=== PATIENT | female | born 1955 | race Caucasian/White ===

== ENCOUNTER 2023-12-03 17:49 | Emergency (ER) | payer MEDICARE, SELFPAY ==
[2023-12-03 17:53] VITALS: BP 114/79
[2023-12-03 17:58] VITALS: BMI 29.5
[2023-12-03 18:02] VITALS: BP 113/79
[2023-12-03 18:06] LABS: Glucose - Point of Care 104 mg/dl (70-99)
[2023-12-03 18:21] LABS: % Basophils 0.5 % (0-2); % Eosinophils 2.6 % (0-6); % Immature Granulocytes 0.2 % (0-0.5); % Lymphocytes 16.6 % (20.5-51.1); % Monocytes 9.8 % (1.7-9.3); % Neutrophils 70.3 % (42.2-75.2); Absolute Eosinophils 0.1 10^3/uL (0-0.7); Absolute Lymphocytes 0.7 10^3/uL (1.2-3.4); Absolute Monocytes 0.4 10^3/uL (0.1-0.6); Hematocrit 39.1 % (37.0-47.0); Hemoglobin 13.8 g/dL (12.0-16.0); Mean Corp Hgb Conc. 35.3 g/dL (33.0-37.0); Mean Corpuscular Hgb 33.4 pg (27.0-31.0); Mean Corpuscular Volume 94.7 fL (81.0-99.0); Nucleated Red Blood Cells % 0 %; Platelet Count 189 10^3/uL (130-400); Red Blood Cell Count 4.13 10^6/uL (4.20-5.40); Red Cell Dist. Width 12.2 % (11.5-14.5); White Blood Cell Count 4.3 10^3/uL (4.8-10.8)
[2023-12-03 18:43] LABS: ALT (SGPT) 27 U/L (0-35); AST (SGOT) 36 U/L (14-36); Albumin 4.7 g/dl (3.5-5.0); Alkaline Phosphatase 65 U/L (38-126); Blood Urea Nitrogen 33 mg/dl (7-17); Calcium 9.5 mg/dl (8.4-10.2); Carbon Dioxide 28 mmol/L (22-30); Chloride 101 mmol/L (98-107); Estimated Creatinine Clearance 69 ml/min; Glucose 107 mg/dl (70-99); Potassium 4.9 mmol/L (3.5-5.1); Sodium 133 mmol/L (135-145); Total Bilirubin 0.5 mg/dl (0.2-1.3); Total Protein 6.9 g/dl (6.3-8.2); eGFR > 60.00
--- NOTE | 2023-12-03 19:09 | ED.GENMED ---
History of Present Illness
General
Chief Complaint: Change in Mental Status
Source: patient and spouse
Exam Limitations: none
Time Seen by Provider: 12/03/23 18:26
Nursing documentation reviewed up to this point in time: agreed with
History of Present Illness
History of Present Illness:
Patient with history of seizure disorder on Vimpat, presents to ED for evaluation after she was found sitting in the parking lot, wearing her pajamas. Patient was noted to have urine incontinence. Upon arrival, patient is alert, awake, but appears
to be confused. Patient otherwise has no complaints. Denies headache. Denies dizziness. Denies loss of sensation or weakness. Patient is unsure if she had another seizure episode today.
Review of Systems
Review of Systems
Allergies reviewed?: Yes
All Other Systems: ROS reviewed and negative except as documented in HPI and ROS
Constitutional: Reports no symptoms
Respiratory: Reports no symptoms
Cardiac: Reports no symptoms
ABD/GI: Reports no symptoms
: Reports no symptoms
Musculoskeletal: Reports no symptoms
Skin: Reports no symptoms
Neurological: Reports no symptoms
Phy Exam
Physical Exam
Physical Exam:
Physical Exam
General: no apparent distress, not acutely ill. afebrile.
Head: nc/at. eomi
Neck: supple. no meningeal signs.
Heart: s1/s2 regular rate and rhythm, no murmur. equal radial pulses.
Lungs: no acute respiratory distress. clear bilaterally
Abdomen: normal bowel sounds. not tender.
Neuro: alert and oriented. no focal neurological deficits
Skin: no rash
Psychiatric: well kept. interactive and cooperative
Extremities: no edema. no calf tenderness.
Course
Orders/Labs/Results
Orders:
Orders
12/03/23 18:02
Electrocardiogram (*1) Urgent
Reason for Study: Fatigue / Weakness
EKG- Treatment ONCE
12/03/23 18:15
CMP [Comprehensive Metabolic Panel] Urgent
Complete Blood Count/With Diff Urgent
Abnormal Lab Results
12/03/23 12/03/23
18:05 18:15
WBC 4.3 L 10^3/uL
(4.8-10.8)
RBC 4.13 L 10^6/uL
(4.20-5.40)
MCH 33.4 H pg
(27.0-31.0)
Absolute Lymphs (auto) 0.7 L 10^3/uL
(1.2-3.4)
Lymphocytes % 16.6 L %
(20.5-51.1)
Monocytes % 9.8 H %
(1.7-9.3)
Sodium 133 L mmol/L
(135-145)
BUN 33 H mg/dl
(7-17)
Glucose 107 H mg/dl
(70-99)
POC Glucose 104 H mg/dl
(70-99)
12/03/23 18:15
12/03/23 18:15
Vital Signs
Initial and Last Documented VS:
Initial Vital Signs
Temp Pulse Resp BP Pulse Ox
98.9 F 81 19 114/79 94
12/03/23 17:53 12/03/23 17:53 12/03/23 17:53 12/03/23 17:53 12/03/23 17:53
Last Documented Vital Signs
Temp Pulse Resp BP Pulse Ox
98.9 F 73 18 113/79 94
12/03/23 17:53 12/03/23 18:45 12/03/23 18:45 12/03/23 18:02 12/03/23 18:45
MDM/Problems Addressed
MDM/Problems Addressed:
Shortly after patient's arrival to ED, patient's spouse arrived. informs me that patient is currently at baseline health and mental status, and she has had number of similar episodes in the past. He does not feel that she needs any further
workup at this time, as she is being closely followed by her neurologist. feels comfortable taking the patient home at this time. They will contact her neurologist for consultation as an outpatient.
*Critical Care Note
Total Time (30-74mins, 75-104mins- exclusive of procedures): Not Applicable
ED Attending Note
-
Portions of this chart may have been created with voice recognition software.� Occasional wrong word or��sound alike� substitutions may have occurred due to the inherent limitations of voice recognition software.
Discharge Plan
Departure
Patient Disposition: Home (Routine Discharge)
Date of Disposition: 12/03/23
Time of Disposition: 19:09
Patient with high blood pressure during this ER visit?: Yes
Discharge Problem:
Seizure
Instructions: Seizures, Adult ED
Activity Restrictions/Additional Instructions:
As discussed, please follow-up with your primary care physician and/or neurologist with any further concerns.
Interventions
Interventions:
*Risk Screen - Suicide Last Done: 12/03/23 18:08
*General Assessment Last Done: 12/03/23 18:08
*Neglect/Abuse Screening Last Done: 12/03/23 18:08
ED- Fall Risk Assessment Last Done: 12/03/23 19:26
*ED COVID-19 Vaccine History Last Done: 12/03/23 18:08
*Nursing Disposition Last Done: 12/03/23 19:26
ED- Pulmonary Assessment Last Done: 12/03/23 18:34
ED- Neurological Assessment Last Done: 12/03/23 18:34
ED- Cardiac Assessment Last Done: 12/03/23 18:34
ED Swallowing Screen Last Done: 12/03/23 19:05
Discharge Date and Time
Discharge Date/Time: 12/03/23 19:31
Print Language: ICELANDIC
== END 2023-12-03 19:31 | disposition home or self-care (01) ==
LOC: EMR 17:49
PROVIDERS: EMERGENCY PHYSICIAN Emergency Medicine; FAMILY PHYSICIAN Internal Medicine
DX: R41.0 Disorientation, unspecified (principal); G40.909 Epilepsy, unspecified, not intractable, without status epilepticus; R32 Unspecified urinary incontinence; Y92.481 Parking lot as the place of occurrence of the external cause; Z96.653 Presence of artificial knee joint, bilateral
CPT/HCPCS: 99283; 80053; 82962; 85025; 93005

== ENCOUNTER 2024-04-15 21:32 | Inpatient (IN) | payer MEDICARE, SELFPAY ==
[2024-04-15 17:44] VITALS: BP 143/91
[2024-04-15 18:17] VITALS: BP 126/83
[2024-04-15 18:23] LABS: % Basophils 0.7 % (0-2); % Eosinophils 1.7 % (0-6); % Immature Granulocytes 0.2 % (0-0.5); % Lymphocytes 15.5 % (20.5-51.1); % Monocytes 10.9 % (1.7-9.3); Absolute Eosinophils 0.1 10^3/uL (0-0.7); Absolute Lymphocytes 0.7 10^3/uL (1.2-3.4); Absolute Monocytes 0.5 10^3/uL (0.1-0.6); Absolute Neutrophils 3.3 10^3/uL (1.4-6.5); Hematocrit 39.2 % (37.0-47.0); Hemoglobin 13.2 g/dL (12.0-16.0); Mean Corp Hgb Conc. 33.7 g/dL (33.0-37.0); Mean Corpuscular Hgb 33.3 pg (27.0-31.0); Mean Platelet Volume 9.6 fL (7.4-10.4); Nucleated Red Blood Cells % 0 %; Platelet Count 214 10^3/uL (130-400); Red Blood Cell Count 3.96 10^6/uL (4.20-5.40); Red Cell Dist. Width 12.5 % (11.5-14.5); White Blood Cell Count 4.6 10^3/uL (4.8-10.8)
[2024-04-15 18:33] LABS: ALT (SGPT) 34 U/L (0-35); AST (SGOT) 49 U/L (14-36); Albumin 4.6 g/dl (3.5-5.0); Alkaline Phosphatase 46 U/L (38-126); Blood Urea Nitrogen 26 mg/dl (7-17); Calcium 9.3 mg/dl (8.4-10.2); Carbon Dioxide 31 mmol/L (22-30); Chloride 99 mmol/L (98-107); Glucose 101 mg/dl (70-99); Potassium 4.7 mmol/L (3.5-5.1); Sodium 136 mmol/L (135-145); Total Bilirubin 0.4 mg/dl (0.2-1.3); eGFR > 60.00
[2024-04-15 18:43] LABS: Troponin I < 0.012 ng/ml
[2024-04-15] MEDS: ADACEL 0.5 ML IM (18:49)
[2024-04-15 19:00] VITALS: BP 119/84
--- NOTE | 2024-04-15 20:45 | ED.GENMED ---
History of Present Illness
General
Chief Complaint: Head Injury
Source: patient, records and spouse
Exam Limitations: none
Time Seen by Provider: 04/15/24 18:28
Nursing documentation reviewed up to this point in time: agreed with
History of Present Illness
History of Present Illness:
Patient is 68-year-old female presents to the emergency department after falling and striking her head on the right side today. Patient had taken a hot shower and sat on the toilet and was bending over when she seemingly passed out striking her
head on the floor. According the patient's she did not have a seizure. Patient has a neuro implant for seizures. It was placed after she became menopausal and is starting to have seizures once a month. The seizure disorder was from a
childhood trauma. Patient denies any chest pain, shortness of breath or palpitations. Patient denies any recent illnesses, fever, chills, nasal congestion, sore throat or cough. Patient denies any GI or symptoms. Patient denies any neck or
back pain. Patient denies any extremity pain. Patient did suffer a laceration to her right forehead. Patient denies any visual or speech difficulties at this time.
Past History
Past History
ED Past Medical History: Seizures
Social History
Tobacco: Non-smoker
Personal:
Review of Systems
Review of Systems
All Other Systems: Not applicable
Phy Exam
Physical Exam
Physical Exam:
Physical Exam
General: No apparent distress, alert and appropriate and usual mental status, well nourished, well hydrated
HENT: head with 6 cm linear/vertical laceration of the right lateral forehead, supple with no tracheal deviation or contusion
Eyes: Clear sclera, conjuctiva without injection, extraocular muscles intact
Heart: Regular rhythm and rate. No S3, S4. No murmur. No NVD, bruit
Lungs: No respiratory distress, no stridor, lung sounds clear and equal bilaterally, chest wall symmetrical and nontender
Abdomen: Soft, nontender, BS good
Neuro: Alert and oriented x 3, CN II - XII intact, no motor focality, no cerebellar dysfunction
Skin: Wound is stated above
Psychiatric: well kept. interactive and cooperative
Extremities: No edema, cyanosis, tenderness, Good and equal peripheral pulses.
Musculoskeletal: No cervical, thoracic or lumbar spine tenderness
Course
Orders/Labs/Results
Orders:
Orders
04/15/24 17:49
Electrocardiogram (*1) Urgent
Reason for Study: Syncope
CT Cervical Spine W/o Iv Contr Urgent
Comment:
Reason For Exam: syncope
CT Head W/o Iv Contrast Urgent
Comment:
Reason For Exam: syncope
04/15/24 17:50
EKG- Treatment ONCE
04/15/24 18:07
Complete Blood Count/With Diff Urgent
Comprehensive Metabolic Panel Urgent
Troponin I Urgent
04/15/24 18:35
Tetanus/Diphth/Acelpertussis [Adacel] 0.5 ml IM .ONCE ONE
04/15/24 20:54
Clonazepam [Klonopin] 1 mg PO NOW STA
Lacosamide [Vimpat] 200 mg PO NOW STA
04/15/24 21:19
Admit/Transfer Patient As Directed
Co-Sign Provider:
Level of Care: Inpatient admission
Assign to:: ICU
Physician / Group: hospitalist
Diagnosis: subdural hematoma
Reason for Hospitalization: subdural hematoma
Expected length of stay greater than two midnights?: Yes
ELOS- Estimated Length of Stay in days: 2
I certify the patient meets the requirements for IP care: Yes
PRN Pain Medication Management As Directed
May give lesser potent ordered pain med per pt: Yes
preference::
Protocol:: Medication orders for pain may be administered in a
manner that supports deferring to patient preference
when the pt is:
- Requesting an ordered lesser potent pain medication.
Least to most potent pain medications are defined
as: acetaminophen < NSAID < tramadol < opioids
(morphine, oxycodone, hydromorphone).
- Requesting a lesser dose of the same medication IF
ORDERED.
- Requesting a less intrusive route of administration
if both routes are prescribed by the provider (PO <
IV).
04/15/24 21:20
Code Status As Directed
Resuscitation Status: Full Code
04/15/24 21:57
Acetaminophen [Tylenol/Feverall] 650 mg RECTAL Q4HPRN PRN
Acetaminophen [Tylenol] 650 mg PO Q4HPRN PRN
Labetalol HCl [Trandate] 5 mg IV Q6HPRN PRN
04/15/24 21:57
Neurosurgery Consult Urgent
Consulting Provider: Nicole Delgado
Was physician already notified: Yes
Reason for Consult: 2 cm subdural hematoma
Activity As Directed
Activity Level: With Assistance
Elevate HOB [Head of Bed-Restrictions] As Directed
Elevation Level: 30 degress
Head of Bed-Restrictions As Directed
Elevation Level: 30 degress
NIH Stroke Scale As Directed
Directions: Per protocol
Comment: every shift and with any change in condition or mental status
Neurological Checks As Directed
Frequency: q1h
Additional Instructions:: q1h and with any change in condition or mental status
Patient Education As Directed
Type: Stroke education packet
Comment: provide to patient and family
Pneumatic Compression Sleeves As Directed
Type: Knee high
Vital Signs As Directed
Frequency: Per unit guidelines
Additional Instructions:: goal SBP 120-140 mmHg
DX Deep Vein Thrombosis Video Routine
04/15/24 22:00
Flush (0.9% Sodium Chloride) [Flush (Nss)] See Dose Instructions IV PER PROTOCOL
04/16/24 06:00
Basic Metabolic Panel IN AM
Complete Blood Count/No Diff IN AM
Magnesium IN AM
PTT IN AM
Prothrombin Time IN AM
Abnormal Lab Results
04/15/24
18:07
WBC 4.6 L 10^3/uL
(4.8-10.8)
RBC 3.96 L 10^6/uL
(4.20-5.40)
MCH 33.3 H pg
(27.0-31.0)
Absolute Lymphs (auto) 0.7 L 10^3/uL
(1.2-3.4)
Lymphocytes % 15.5 L %
(20.5-51.1)
Monocytes % 10.9 H %
(1.7-9.3)
Carbon Dioxide 31 H mmol/L
(22-30)
BUN 26 H mg/dl
(7-17)
Glucose 101 H mg/dl
(70-99)
AST 49 H U/L
(14-36)
04/15/24 18:07
04/15/24 18:07
Vital Signs
Initial and Last Documented VS:
Initial Vital Signs
Temp Pulse Resp BP Pulse Ox
98.3 F 75 20 143/91 98
04/15/24 17:44 04/15/24 17:44 04/15/24 17:44 04/15/24 17:44 04/15/24 17:44
Last Documented Vital Signs
Temp Pulse Resp BP Pulse Ox
98.5 F 65 17 115/80 98
04/15/24 22:00 04/15/24 22:30 04/15/24 22:30 04/15/24 22:13 04/15/24 22:30
Procedures
Laceration Closure
Right Lateral Forehead:
Status of Wound: clean
Size of Wound in cm: 6
Description of Wound Edges: sharp
Preparation: cleaned with Betadine
Anesthesia: 1% Lidocaine with epi and added Na Bicarb to local
Revision/Debridement: minor revision
Wound exploration: explored to base- no FB
Type of Closure: layered closure, interrupted sutures (10) and mattress sutures (5)
Skin Closure Material: 6-0 prolene (15) and 5-0 chromic gut (7)
Number of sutures: 22
*Radiology
Radiology exam reviewed: radiology read reviewed (Small right frontal subdural)
*Pulse Oximetry
Patient hypoxic: no
*EKG
Interpreted by ED Provider?: Yes
EKG Intrepretation Date: 04/15/24
EKG Intrepretation Time: 20:53
Interpretation: abnormal
Comparison EKG: no changes
Heart Rate: 72
Rate: normal
Rhythm: sinus
Jay: normal axis
Interval: normal interval
QRS Pattern: normal QRS and low voltage
Ischemia: no ischemia
*Electrician Front Interpretation
Rate: normal
Interpretation: normal
Heart Rate: 72
Rhythm: sinus
*Critical Care Note
Total Time (30-74mins, 75-104mins- exclusive of procedures): 40 minutes
Update Note
Update Note:
Spoke with neurosurgery at [facility]. [place] the patient would be okay here for observation and a repeat scan. Scan would be at 12 midnight and observation for 12 to 24 hours. Patient is not on any blood thinners or aspirin.
ED Attending Note
-
Portions of this chart may have been created with voice recognition software.� Occasional wrong word or��sound alike� substitutions may have occurred due to the inherent limitations of voice recognition software.
Discharge Plan
Departure
Patient Disposition: Admit
Date of Disposition: 04/15/24
Time of Disposition: 21:05
Admit to: ICU
Admit to doctor: Hospitalist
Presentation/result/management discussed w/ accepting MD/DO: Neurosurgery
Patient with high blood pressure during this ER visit?: No
Condition: Serious
Covid-19: Not Applicable
Discharge Problem:
Acute subdural hematoma, Syncope and collapse, Complex laceration of forehead
Interventions
Interventions:
*Risk Screen - Suicide Last Done: 04/15/24 22:32
*General Assessment Last Done: 04/15/24 17:44
*Neglect/Abuse Screening Last Done: 04/15/24 18:15
*ED COVID-19 Vaccine History Last Done: 04/15/24 22:32
*Nursing Disposition Last Done: 04/15/24 22:33
ED- Neurological Assessment Last Done: 04/15/24 18:16
ED-Skin Assessment Last Done: 04/15/24 18:16
Discharge Date and Time
Discharge Date/Time: 04/15/24 22:33
[2024-04-15 21:00] VITALS: BP 126/93
[2024-04-15] MEDS: KLONOPIN 1 MG PO (21:00)
[2024-04-15] MEDS: VIMPAT 200 MG PO (21:00)
--- NOTE | 2024-04-15 21:33 | HPS.HSE ---
Family Physician
-
Family Physician: Doe Escobedo
Chief Complaint
-
Fall and right sided fore-head laceration
History of Present Illness
68 y.o female with h/o epilepsy since childhood on AED who had a mechanical fall today complicated by laceration over the forehead and acute subdural hematoma.
Patient reported been in usual state of health. She had went to use the commode and upon standing she felt lightheaded and fell to the floor hitting her head. She had no loss of consciousness. She had no seizure-like activity. She had been
compliant with her AEDs. When spouse or head before he quickly came to her assistance. He was able to get her up and called EMS to bring her to the ED. Patient denies any arm or hip or leg pain. Patient is not on any blood thinners or aspirin.
Initial vital signs were stable with a blood pressure of 196/90, pulse of 65 and temp of 90.3. She is satting 96% on room air. CBC was unremarkable. Electrolytes BUN/creatinine were also within normal limits. ECG showed a normal sinus rhythm at
rate of [address] or T wave changes. Troponin was negative. CT of the head showed a 2 cm area of subacute subdural hemorrhage in the anterior aspect of the right anterior cranial fossa.
Patient reviewed by neurosurgery. No transfer. [place] that a repeat CT around midnight would be adequate with 12 to 24 hours of observation in the ICU as long as the subdural had not increased in size.
Medical History
Past Medical History
Past Medical History: Reports Seizures
Past Surgical History: Reports Orthopedic (Left knee arthroplasty)
Social History
Tobacco: Non-smoker
Alcohol: None
Drug: None
Personal:
Living: With Family
Family History
Family History: Not pertinent
Allergies / Home Medications
Allergies reflects when Allergies were last updated in [facility].
Home Medications with original date entered in [facility]
Allergy/Medication List:
Allergies
Allergy/AdvReac Type Severity Reaction Status Date / Time
No Known Allergies Allergy Verified 04/15/24 17:44
Review of Systems
-
History Source: Patient
Constitutional: Reports No Symptoms
EENT: Reports No Symptoms
Respiratory: Reports No Symptoms
Cardiac: Reports No Symptoms
Abdomen/GI: Reports No Symptoms
: Reports No Symptoms
Musculoskeletal: Reports No Symptoms
Skin: Reports No Symptoms
Neurological: Reports Headache
Endocrine: Reports No Symptoms
Hematologic/Lymphatic: Reports No Symptoms
Psych: Reports No Symptoms
Physical Exam
Vital Signs
Vital Signs
Temp Pulse Resp BP Pulse Ox
98.3 F 65 15 126/93 96
04/15/24 17:44 04/15/24 21:00 04/15/24 20:45 04/15/24 21:00 04/15/24 21:00
Physical Exam
General: Well Developed, Well Nourished, No Apparent Distress and Comfortable
HEENT: NormoCephalic, Anicteric, Moist mucous membranes and Other (about a 7 cm curvilinear laceration above the right eye on the right forehead, s/p sutures that are c/d/i)
Respiratory: Clear
Cardiac: S1/S2 and Regular Rhythm
Breast: Deferred by me
GI: Soft, Non Tender, Non Distended and Normal Bowel Sounds
Rectal: Deferred by Provider
Genito-urinary: Deferred by me
Musculoskeletal: No Clubbing, No Cyanosis and No Edema
Skin: Warm
Neuro: AO x 3, No Motor Deficits, Cranial Nerves Intact and No Sensory Deficits
Hematologic/Lymphatic: No Lymphadenopathy
Psych: Calm
Laboratory Results
-
04/15/24 18:07
04/15/24 18:07
Laboratory Results
Total Bilirubin 0.4 mg/dl (0.2-1.3) 04/15/24 18:07
AST 49 U/L (14-36) H 04/15/24 18:07
ALT 34 U/L (0-35) 04/15/24 18:07
Alkaline Phosphatase 46 U/L (38-126) 04/15/24 18:07
Troponin I < 0.012 ng/ml 04/15/24 18:07
Data Reviewed
-
CT Scan: Report Reviewed by me
Medical Tests (Nuc Med, Echo, EKG etc): Image Personally Visualized and interpreted
Lab Data: Labs Reviewed by me
Old Records: Reviewed
Impression/Plan
-
IMPRESSION:
Patient with episode of lightheadedness after using commode and a fall. No seizures. She did suffer a significant laceration over the right forehead status post sutures and found to have 2 cm right-sided subdural hematoma. Not on any blood
thinners or aspirin. Neurologically intact without any focal deficits and otherwise well-appearing.
PLAN:
Subdural Hematoma -
- admit to icu
- q 1 h neurochecks
- keep SBP < 140, intermittent labetolol and if needed nicardipine
- hob > 30 deg
- repeat CT 6 hours (midnight)
- SCDs
AED
- continue vimpat 200 bid
- clonazepam 1mg hs
Code Status - Full code
[2024-04-15 22:13] VITALS: BP 115/80
--- NOTE | 2024-04-15 22:44 | PTCARENOTE ---
Pt received from ED via stretcher. Admitted to ICU--[id number]. Pt Ox3. NIH = 0. LE, strong. SR-sinus gladis, 50s-60s. RA, diminished at the bases. BS active, soft BM. Voided x1, yellow urine. R side of head with sutures, dressing intact. Safe environment
maintained, all giordano within reach.
[2024-04-15 23:00] VITALS: BP 109/72
[2024-04-16] VITALS (22 sets, daily range): BP systolic 83–121; BP diastolic 57–90; BMI 30.4
--- NOTE | 2024-04-16 01:00 | PTCARENOTE ---
Pt with NPO order, sips of clears and meds ok. Pt spouse brought in sandwich when RN not in room, pt aware of NPO order--ate sandwich. Reminded pt of NPO order.
[2024-04-16 04:05] LABS: Hematocrit 36.1 % (37.0-47.0); Hemoglobin 12.1 g/dL (12.0-16.0); Mean Corp Hgb Conc. 33.5 g/dL (33.0-37.0); Mean Corpuscular Hgb 33.1 pg (27.0-31.0); Mean Corpuscular Volume 98.6 fL (81.0-99.0); Mean Platelet Volume 9.8 fL (7.4-10.4); Platelet Count 184 10^3/uL (130-400); Red Blood Cell Count 3.66 10^6/uL (4.20-5.40); Red Cell Dist. Width 12.2 % (11.5-14.5); White Blood Cell Count 4.4 10^3/uL (4.8-10.8)
[2024-04-16 04:13] LABS: INR 0.95
[2024-04-16 04:14] LABS: APTT 25.3 Sec (23.4-35.0)
--- NOTE | 2024-04-16 04:21 | PTCARENOTE ---
Pt assessment unchanged. Safe environment maintained. Call giordano within reach.
[2024-04-16 04:29] LABS: Blood Urea Nitrogen 27 mg/dl (7-17); Calcium 8.2 mg/dl (8.4-10.2); Carbon Dioxide 26 mmol/L (22-30); Chloride 106 mmol/L (98-107); Glucose 84 mg/dl (70-99); Magnesium 1.8 mg/dl (1.6-2.3); Potassium 3.6 mmol/L (3.5-5.1); Sodium 139 mmol/L (135-145); eGFR > 60.00
--- NOTE | 2024-04-16 07:40 | CON.INTV ---
Consultation
Consultation Request
Date/Time Consultation Requested: 04/16/2024-7 AM
Date/Time Consultation Performed: 04/16/2024-7:30 AM
Requesting Provider: Hospitalist
Performing Provider: Dr. Haji
Reason for Consultation: Subdural hematoma/critical care management
Medical History
-
Chief Complaint: Fall/subdural hematoma
History of Present Illness:
68-year-old female with a history of epilepsy since childhood who had a mechanical fall complicated by laceration over forehead and acute subdural hematoma-shank rander consulted for subdural hematoma/critical care management 04/16/2024. Patient
denies any headache, focal weakness, visual problems, shortness of breath, chest pain, chest tightness, productive cough, chest congestion, abdominal pain, nausea, weakness or lower extremity swelling.
Past Medical History
Past Medical History: None (Epilepsy since childhood. Left knee arthroplasty)
Social History
Tobacco: Non-smoker
Alcohol: None
Drug: None
Personal:
Living: With Family
Occupational Exposures: No known asbestos exposure
Environmental Exposures: no known tuberculosis exposure
Family History
Family History: Reviewed & Not Pertinent
Allergies / Home Medications
Allergies
Allergy/AdvReac Type Severity Reaction Status Date / Time
No Known Allergies Allergy Verified 04/15/24 17:44
Home Medications
�Medication �Instructions �Recorded �Confirmed �Last Taken �Type
anastrozole 1 mg tablet 1 mg PO DAILY 04/15/24 04/15/24 Unknown History
clonazepam 0.25 mg disintegrating 0.25 mg PO HS 04/15/24 Unknown History
tablet
clonazepam 1 mg tablet 1 mg PO HS 04/15/24 Unknown History
escitalopram oxalate 10 mg tablet 10 mg PO DAILY 04/15/24 Unknown History
lacosamide 200 mg tablet 200 mg PO Q12 04/15/24 Unknown History
Review of Systems
-
Unable to Obtain full review of systems at this time due to: Other (Per HPI)
Vitals / Labs / Diagnostic Testing
Vital Signs
Temp Pulse Resp BP Pulse Ox
96.8 F L 70 15 121/78 92
04/16/24 03:28 04/16/24 07:00 04/16/24 07:00 04/16/24 07:00 04/16/24 06:00
Lab Data
04/16/24 03:52
04/16/24 03:52
Laboratory Results
04/15/24 04/16/24
21:43 03:52
PT Cancelled 13.0
INR Cancelled 0.95
APTT Cancelled 25.3
Diagnostic Testing:
Physical Exam
-
Exam:
Well-nourished and well-developed in no apparent distress
HEENT-atraumatic, normocephalic, laceration right forehead
Neck-supple, no JVD, no bruit
Heart-regular rate and rhythm-no murmurs, rubs or gallops
Chest-clear to auscultation, no wheezes, crackles
Back-no tenderness
Abdomen-soft, nontender, nondistended, no hepatosplenomegaly
Extremities-no cyanosis, clubbing, edema and good peripheral pulses
Integument-intact, no rashes, lesions or ecchymosis
Neurology-alert and oriented, nonfocal motor and sensory exam
Assessment
-
68-year-old female with a history of epilepsy since childhood who had a mechanical fall complicated by laceration over forehead and acute subdural hematoma-shank rander consulted for subdural hematoma/critical care management 04/16/2024.
Mechanical fall with forehead laceration
Subdural hematoma
Leukopenia
Conditions present prior to admission:
Epilepsy since childhood
Plan
Patient will be monitored closely in intensive care unit
Supplemental oxygen as needed
Aspiration precautions
Neurochecks per protocol
Follow-up CT head to ensure subdural hematoma is not enlarging-appears stable on second CT
Neurosurgical evaluation ongoing
Antiepileptics continue
DVT prophylaxis-mechanical
Nutrition
Early mobilization
If no expansion of the subdural hematoma then the patient could be transferred out of ICU-call pulmonary if respiratory issues arise
Critical care statement: A total of 55 minutes of critical care time was provided for this patient today. This includes management of unstable vital signs, evaluation of the patient at bedside, reviewing the patient's pertinent medical records
including radiographs, microbiology, laboratory evaluations, and discussion with primary team, consultants, pharmacy, nutrition, physical therapy, case management, charge nurse, critical care nursing, and respiratory therapy.
Diagnostic data:
Chest x-ray 04/15/2024-no acute cardiopulmonary process
CT cervical spine 04/15/2024-no acute osseous abnormalities, degenerative disc disease C3-4 through C6-7
CT head 04/15/24-2 cm area of subacute subdural hemorrhage anterior aspect of the right anterior cranial fossa, moderate cortical atrophy
CT head 04/16/24-2 cm area of subacute right frontal subdural hematoma essentially stable
Data Reviewed
-
EKG: Report reviewed by me
Radiology: Image personally visualized and interpreted and Report reviewed by me
CT Scan: Image personally visualized and interpreted and Report reviewed by me
Medical Tests (Nuc Med, Echo etc): Report reviewed by me
Labs: Labs reviewed by me
Old Records: Reviewed
Critical Care Time (in minutes): 55
--- NOTE | 2024-04-16 07:49 | PTCARENOTE ---
Rec'd care of patient at 0700. Patient alert and oriented. NIH completed with previous RN- 0. Flakita4. Smile symmetrical, tongue midline. Pupils equal and reactive. Patient denies visual changes and dizziness. NSR on tele. Lung sounds cta. +BS. Last
BM overnight. Voiding without difficulty. Right forehead laceration covered with dressing- c/d/i. Peripheral INTs flushed and capped. Bed alarm on and safe environment maintained.
[2024-04-16] MEDS: VIMPAT 200 MG PO ×2 (08:00→20:33)
--- NOTE | 2024-04-16 09:27 | W.PN.HOSP.TC ---
Today's Communication/Plan
-
see plan
Assessment / Plan
Assessment / Plan
Gen: NAD, AAOx3.
Eyes: EOMI, PERRLA, no scleral icterus.
Neck: supple.
CV: RRR, +S1/S2, no m/r/g.
Resp: CTAB, no rales, wheezes, or rhonchi.
Abd: +BS, soft, NT, ND
Skin: No rashes.
Neuro: CN 2-12 intact, non-focal.
Psych: Normal mood and affect.
CT brain: Unenhanced CT imaging of the head is again markedly limited as a result of marked beam hardening artifact from bilateral neurostimulator wires. Approximate 2 cm area of subacute right frontal subdural hematoma is essentially stable. The
remainder of the study is grossly stable.
Subdural Hematoma:
-due to fall without report of seizure activity or LOC
-cont Q1H neurochecks
-repeat CT brain stable
-c/s neurosurgery
Seizure d/o: continue vimpat/clonazepam
Obesity due to excess calories
FULL/SCDs
Anticipated Discharge: Within 24 hours
Subjective/Interval History
-
Date of Service: April 16, 2024
Denies headache. No new complaints.
Objective Data
-
Labs:
Laboratory Results
04/15/24 04/16/24
21:43 03:52
WBC 4.4 L
Hgb 12.1
Hct 36.1 L
Plt Count 184
PT Cancelled 13.0
INR Cancelled 0.95
APTT Cancelled 25.3
Sodium 139
Potassium 3.6
Chloride 106
Carbon Dioxide 26
BUN 27 H
Creatinine 0.6
Glucose 84
Calcium 8.2 L
Vital Signs:
Vital Signs
Temp Pulse Resp BP Pulse Ox
97.5 F 65 18 104/75 94
04/16/24 07:30 04/16/24 09:00 04/16/24 09:00 04/16/24 09:00 04/16/24 09:00
--- NOTE | 2024-04-16 12:18 | PTCARENOTE ---
No changes in assessment. Neuro checks maintained Q1 hr. Vitals stable.
--- NOTE | 2024-04-16 12:58 | PTCARENOTE ---
Diet advanced to regular. Patient assisted in ordering lunch.
--- NOTE | 2024-04-16 14:59 | CON.NS ---
Consultation
-
Date/Time Consultation Performed: 04/16/2024; 15:00
Performing Provider: Sandy
Chief Complaint
History of Present Illness
This is a neurosurgical consultation on a 68-year-old female with epilepsy, who has been on antiepileptic medication since childhood. She states mechanical fall yesterday evening. She had a noncontrast CT scan of the head performed in the
emergency room, which reported right anterior frontal hyperdensity, suspicious for acute subdural hematoma. According to chart review, patient went to use the commode and upon standing, felt lightheaded and fell to the floor, hitting her head.
There was no reported loss consciousness. She did not have any seizure-like activity. Patient had a repeat CT scan of the head which was stable compared with the initial 1. Patient was admitted to the ICU for close neurological monitoring.
Patient seen and examined. Currently denies any headache. Reports that she took a hot shower, and then subsequent went to the bathroom, which then incited her to fall. She cannot recall whether or not she felt dizzy or faint prior to her falling.
She denies any nausea currently.
Review of Systems
-
10 point review of systems including constitutional, ENT, cardiovascular, respiratory, GI, , endocrinology, hematologic, musculoskeletal, neurologic, was performed, and was negative except for as stated in HPI.
Medication and Allergies
Home Medications
Home Medications
�Medication �Instructions �Recorded
anastrozole 1 mg tablet 1 mg PO DAILY Hormonal Agent 04/15/24
clonazepam 0.25 mg disintegrating 0.25 mg PO HS Mental Health/Anxiety 04/15/24
tablet
clonazepam 1 mg tablet 1 mg PO HS Mental Health/Anxiety 04/15/24
escitalopram oxalate 10 mg tablet 10 mg PO DAILY Mental 04/15/24
Health/Anxiety
lacosamide 200 mg tablet 200 mg PO Q12 Seizures 04/15/24
Allergies
Allergies
Allergy/AdvReac Type Severity Reaction Status Date / Time
No Known Allergies Allergy Verified 04/15/24 17:44
Physical Exam
-
Exam:
Awake, alert, no apparent distress.
Speech is fluent, comprehension is intact, repetition is normal.
Cranial nerves II 12 are grossly intact.
Motor: 5/5 strength bilaterally in upper extremities and lower extremities. No evidence of pronator drift.
Head is normocephalic, right periorbital ecchymosis, right forehead laceration. Dressing is clean and dry.
Neck is supple
Breathing is nonlabored
Cardiac: Regular rate
Abdomen is soft
Extremities are warm
Noncontrast CT scan of the head performed on 04/16/2024 was reviewed, and compared with previous CT performed approximately 6 hours prior. Images were personally viewed and interpreted by me. There is extensive artifact overlying bilateral
parietal skull, consistent with postsurgical changes. There are multiple leads extending into the brain parenchyma bilaterally. There is evidence of a hyperdense focus within the right anterior frontal lobe, which may be consistent with possible
hemorrhagic contusion. Imaging appears to be stable between the scans performed at 6 PM 04/15/2024, and at approximately midnight on 04/16/2024.
Problems
-
Problem Status Onset Code
Complex laceration of forehead S01.81XA
Syncope and collapse R55
Acute subdural hematoma S06.5XAA
Assessment / Plan
-
This is a 68-year-old female with a history of epilepsy, who presents after mechanical fall. Imaging demonstrates right anterior frontal focal subdural hematoma versus likely contusion.
Patient remains neurologically stable/intact.
Continue with current antiepileptic medication regimen.
Okay to transfer out of ICU, okay to discharge from neurosurgical standpoint given stable CT.
Hold any therapeutic oral anticoagulant, or antiplatelet agent for approximately 2 weeks.
Okay for DVT prophylaxis.
Patient to follow-up in the office in approximately 3 weeks with a noncontrast CT scan of the head.
Patient can go home per my specialty: Today
--- NOTE | 2024-04-16 15:32 | PTCARENOTE ---
Patient downgraded to telemetry level. VSS. Neuro checks wnl.
--- NOTE | 2024-04-16 15:47 | CM ---
CM following re: discharge planning.
Reviewed pt's chart, met with pt.
Pt is a 68 year old female, admitted with primary dx of Subdural hematoma.
Pt reports she lives with 2SH, 1 steps to enter, has 2 supportive children. Pt described herself as independent in all areas [employer]LY[employer], has a walker from knee replacement in the past, does not use it. Pt excessed her desire to return back home at
discharge.
PCP: Doe Escobedo
Pharmacy: [facility]
D/C plan: home with anticipated no needs. Family to transport at discharge.
CM will follow with discharge plan updates as hospitalization progresses
[2024-04-16 18:07] LABS: Hepatitis C Antibody Negative (Negative)
--- NOTE | 2024-04-16 19:35 | PTCARENOTE ---
Pt arrived to unit from ICU. Pt is AAOx3, VSS, and w/o complaints of pain. Pt is resting comfortably with call giordano within reach.
--- NOTE | 2024-04-16 20:13 | W.PN.UPDATE ---
Update Note
Progress Note Update
RN requesting NIH check as patient is transfer out of ICU. Neurologist signed out per notes. NIH 0 Neuro check 15 per assessment by RN. Will continue neuro check NIH per unit guidelines.
[2024-04-16] MEDS: KLONOPIN 1 MG PO (23:15)
[2024-04-17 03:18] VITALS: BP 105/69
[2024-04-17] MEDS: VIMPAT 200 MG PO (07:10)
[2024-04-17 07:20] VITALS: BP 103/65
--- NOTE | 2024-04-17 08:31 | W.PN.HOSP.TC ---
Today's Communication/Plan
-
d/c
Assessment / Plan
Assessment / Plan
Gen: NAD, Awake and alert
Eyes: EOMI, PERRLA, no scleral icterus.
Neck: supple.
CV: remains RRR, +S1/S2, no m/r/g.
Resp: CTAB anteriorly, no rales, wheezes, or rhonchi.
Abd: +BS, soft, NT, ND
Skin: No rashes.
Neuro: CN 2-12 intact, non-focal.
Psych: Normal mood and affect.
CT brain: Unenhanced CT imaging of the head is again markedly limited as a result of marked beam hardening artifact from bilateral neurostimulator wires. Approximate 2 cm area of subacute right frontal subdural hematoma is essentially stable. The
remainder of the study is grossly stable.
Subdural Hematoma:
-due to mechanical fall without report of seizure activity or LOC
-repeat CT brain stable
-cleared for d/c by neurosurgery
Seizure d/o: continue vimpat/clonazepam
Obesity due to excess calories
FULL/SCDs
Total time spent on d/c = 31 min. This included today's physical exam, progress note, review of laboratory and diagnostic data, preparation of discharge documents and prescriptions, and discussions about the pt's hospital course and discharge plan
with the patient and other medical concierge involved in the patient's care.
Anticipated Discharge: Today
Subjective/Interval History
-
Date of Service: April 17, 2024
No new complaints.
Objective Data
-
Vital Signs:
Vital Signs
Temp Pulse Resp BP Pulse Ox
97.5 F 56 18 103/65 99
04/17/24 07:20 04/17/24 07:20 04/17/24 07:20 04/17/24 07:20 04/17/24 07:20
I&O
04/16/24 04/17/24 04/18/24
06:59 06:59 06:59
Intake Total 480 / 480
Balance 480 / 480
--- NOTE | 2024-04-17 10:47 | CM ---
CM met with María and her at bedside prior to discharge today. Pt's is awaiting discharge and will drive María home.
Plan: Discharge to home with no identified needs.
[2024-04-17 11:00] VITALS: BP 105/63; BP 129/75; PULSE 60
[2024-04-17 11:28] VITALS: BP 130/84
--- NOTE | 2024-04-17 14:16 | W.DCSUMMARY ---
Discharge Summary
Discharge Data
Date of Admission: 04/15/24
Date of Discharge: 04/17/24
-
Pending Results: No
Hospital Course
Primary diagnoses:
Subdural hematoma due to mechanical fall
Secondary diagnoses:
Seizure disorder
Obesity due to excess calories
Consults:
Neurosurgery
Imaging:
CT brain: There is a 2 cm area of subacute subdural hemorrhage in the anterior aspect of the right anterior cranial fossa.
CT brain (repeat): Unenhanced CT imaging of the head is again markedly limited as a result of marked beam hardening artifact from bilateral neurostimulator wires. Approximate 2 cm area of subacute right frontal subdural hematoma is essentially
stable. The remainder of the study is grossly stable.
Hospital course: 68-year-old female who presented with a subdural hematoma due to mechanical fall. There were no reports of seizure activity or loss of consciousness. She was monitored in the hospital and had 2 CT scans of the brain showing
stability of a 2 cm subacute right frontal subdural hematoma. The patient was seen in consultation by neurosurgery and medically cleared for discharge.
Discharge Plan
-
Patient Disposition: Home (Routine Discharge)
Discharge Diagnosis/Procedures: Subdural hematoma
Condition: Good
Diet: No restrictions
Activity: As tolerated
Driving Restrictions: Not until seen by your Dr
Others Tests: CT brain in 3 weeks, script from PCP
Referrals:
Doe Escobedo MD [Family Provider] - in less than 1 week
Nicole Delgado MD [Active] - in two to three weeks
Prescriptions:
Continued
anastrozole 1 mg tablet
1 mg PO DAILY
clonazepam 1 mg tablet
1 mg PO HS
escitalopram oxalate 10 mg tablet
10 mg PO DAILY
clonazepam 0.25 mg tablet,disintegrating
0.25 mg PO HS
lacosamide 200 mg tablet
200 mg PO Q12
Discharge Orders:
Discharge Patient (As Directed); Ordered 04/17/24
Ordered By: Cachorro Dumont
Discharge Date and Time
Discharge Date/Time: 04/17/24 11:27
Print Language: SERBIAN
== END 2024-04-17 11:27 | disposition home or self-care (01) | DRG 87 ==
LOC: 4 EAST ACU 21:32
PROVIDERS: Emergency Medicine; ADMITTING PHYSICIAN Internal Medicine; ATTENDING PHYSICIAN Internal Medicine; CONSULT PHYSICIAN Internal Medicine Critical Care Medicine; EMERGENCY PHYSICIAN Emergency Medicine; FAMILY PHYSICIAN Internal Medicine; OTHER PHYSICIAN Neurological Surgery
PROC: 0HQ1XZZ Repair Face Skin, External Approach (ICD-10-PCS; 2024-04-15)
DX: S06.5X0A Traumatic subdural hemorrhage without loss of consciousness, initial encounter (principal); S01.81XA Laceration without foreign body of other part of head, initial encounter; W18.12XA Fall from or off toilet with subsequent striking against object, initial encounter; G40.909 Epilepsy, unspecified, not intractable, without status epilepticus; E66.09 Other obesity due to excess calories; Z68.30 Body mass index [BMI] 30.0-30.9, adult
CPT/HCPCS: 13132; 70450; 71045; 72125; 80048; 80053; 83735; 84484; 85025; 85027; 85610; 85730; 86803; 90471; 90715; 93005; 97162; 99291